=== PATIENT | male | born 1940 | race Caucasian/White ===

== ENCOUNTER 2021-01-05 05:50 | Observation (INO) ==
[2020-12-30 11:00] LABS: Basophils # 0.1 10*3/uL (0.0-0.2); Basophils % 0.7 % (0.0-0.8); Eosinophils # 0.2 10*3/uL (0.0-0.87); Eosinophils % 2.4 % (0.00-10.9); Hemoglobin 12.3 GM/DL (14.0-18.0); Immature Granulocytes % 0.8 %; Immature Granulocytes Absolute 0.06 #; Lymphocytes # 2.2 10*3/uL (1.4-4.0); Lymphocytes % 30.6 % (21.2-54.2); Mean Corpuscular HGB Conc 31.5 GM/DL (32-36); Mean Corpuscular Volume 96.5 FL (87-102); Mean Platelet Volume 11.6 FL (9.6-12.0); Monocytes % 9.8 % (1.7-12.7); Neutrophils % 55.7 % (38.7-73.9); Platelet Count 152 T/CUMM (130-400); Red Blood Count 4.04 MC/CUMM (3.8-5.5); Red Cell Distribution Width 14.8 % (9.3-17.3); White Blood Count 7.1 T/CUMM (4-12)
[2020-12-30 11:12] LABS: INR 1.3; PT Patient Result 13.7 SECS (9.8-11.9); Partial Thromboplastin Time 34.2 SECS (23.9-33.8)
[2020-12-30 11:33] LABS: Calcium 8.7 MG/DL (8.5-10.1); Osmolality,Calculated 294.7 MOS/KG (273-304); Potassium 4.5 MMOL/L (3.5-5.1)
[2021-01-05] MEDS ORDERED: ceFAZolin 1,000 MG in SYRINGE 1 EACH IV ONE (06:00)
[2021-01-05] MEDS ORDERED: cefTRIAXone 1,000 MG in SYRINGE 1 EACH IV ONE (06:00)
[2021-01-05] MEDS ORDERED: DIAZEPAM 5 MG TABLET PO ONE (06:39)
[2021-01-05] MEDS ORDERED: FAMOTIDINE 20 MG TABLET PO ONE (06:39)
[2021-01-05] MEDS ORDERED: MIDAZOLAM 2 MG/2 ML VIAL ONE (06:44)
[2021-01-05] MEDS ORDERED: fentaNYL 100 MCG/2 ML VIAL ONE (06:44)
[2021-01-05] MEDS ORDERED: ROCURONIUM 50 MG/5 ML VIAL IV ONE (06:48)
[2021-01-05] MEDS ORDERED: LIDOCAINE 2% 5 ML VIAL ONE (06:48)
[2021-01-05] MEDS ORDERED: propofoL 200 MG/20 ML VIAL IV ONE (06:48)
[2021-01-05] MEDS ORDERED: SUCCINYLCHOLINE 200 MG/10 ML VIAL ONE (06:49)
[2021-01-05] MEDS ORDERED: LACTATED RINGERS 1,000 ML IV SCH (07:00)
[2021-01-05] MEDS ORDERED: SEVOFLURANE 1 UNIT/15 MINUTE INH ONE ×10 (08:03→10:59)
[2021-01-05] MEDS ORDERED: PHENYLEPHRINE 1 MG/10 ML SYRINGE IV ONE (08:03)
[2021-01-05] MEDS ORDERED: ACETAMINOPHEN INJ 1,000 MG/100 ML VIAL IV ONE (08:26)
[2021-01-05] MEDS ORDERED: ePHEDrine 50 MG/ML VIAL ONE (09:08)
[2021-01-05] MEDS ORDERED: MAGNESIUM HYDROXIDE SUSP 30 ML UDCUP PO PRN (10:32)
[2021-01-05] MEDS ORDERED: ONDANSETRON 4 MG/2 ML VIAL IV PRN (10:32)
[2021-01-05] MEDS ORDERED: HYDROmorphone 2 MG/1 ML VIAL IV PRN (10:32)
[2021-01-05] MEDS ORDERED: PROMETHAZINE 25 MG/1 ML VIAL IM PRN (10:32)
[2021-01-05] MEDS ORDERED: oxyCODONE/ACETAMINOPHEN 5-325 MG TABLET PO PRN (10:35)
[2021-01-05 12:56] LABS: Basophils # 0.1 10*3/uL (0.0-0.2); Basophils % 0.8 % (0.0-0.8); Eosinophils # 0.1 10*3/uL (0.0-0.87); Eosinophils % 1.1 % (0.00-10.9); Hematocrit 36.5 VOL% (42.0-52.0); Immature Granulocytes % 0.8 %; Immature Granulocytes Absolute 0.05 #; Lymphocytes # 1.1 10*3/uL (1.4-4.0); Lymphocytes % 17.1 % (21.2-54.2); Mean Corpuscular HGB Conc 30.1 GM/DL (32-36); Mean Corpuscular Volume 98.4 FL (87-102); Mean Platelet Volume 10.4 FL (9.6-12.0); Monocytes % 7.1 % (1.7-12.7); Neutrophils % 73.1 % (38.7-73.9); Platelet Count 139 T/CUMM (130-400); Red Blood Count 3.71 MC/CUMM (3.8-5.5); Red Cell Distribution Width 14.8 % (9.3-17.3); White Blood Count 6.6 T/CUMM (4-12)
[2021-01-05] MEDS: cefTRIAXone 1,000 MG in SODIUM CHLORIDE 0.9% 100 ML IV SCH (13:03)
[2021-01-05] MEDS: ACETAMINOPHEN 325 MG TABLET PO SCH ×3 (13:03→23:04)
[2021-01-05 13:08] LABS: Calcium 8.6 MG/DL (8.5-10.1); Potassium 4.2 MMOL/L (3.5-5.1)
[2021-01-05] MEDS: SODIUM CHLORIDE 0.9% 1,000 ML IV SCH (18:19)
[2021-01-05] MEDS: ATORVASTATIN 20 MG TABLET PO SCH (21:20)
[2021-01-05] MEDS: MUPIROCIN 2% OINT 22 GM TUBE TOP SCH (21:21)
[2021-01-06] MEDS: ACETAMINOPHEN 325 MG TABLET PO SCH ×4 (05:23→22:29)
[2021-01-06 05:33] LABS: Basophils # 0.1 10*3/uL (0.0-0.2); Basophils % 0.9 % (0.0-0.8); Eosinophils # 0.2 10*3/uL (0.0-0.87); Eosinophils % 2.6 % (0.00-10.9); Hematocrit 36.1 VOL% (42.0-52.0); Immature Granulocytes % 0.7 %; Immature Granulocytes Absolute 0.04 #; Lymphocytes # 1.3 10*3/uL (1.4-4.0); Lymphocytes % 22.1 % (21.2-54.2); Mean Corpuscular HGB Conc 30.5 GM/DL (32-36); Mean Corpuscular Volume 98.9 FL (87-102); Mean Platelet Volume 10.7 FL (9.6-12.0); Monocytes % 10.5 % (1.7-12.7); Neutrophils % 63.2 % (38.7-73.9); Platelet Count 127 T/CUMM (130-400); Red Blood Count 3.65 MC/CUMM (3.8-5.5); Red Cell Distribution Width 14.7 % (9.3-17.3); White Blood Count 5.8 T/CUMM (4-12)
[2021-01-06 05:51] LABS: Calcium 8.2 MG/DL (8.5-10.1); Osmolality,Calculated 293.7 MOS/KG (273-304); Potassium 4.2 MMOL/L (3.5-5.1)
[2021-01-06 05:54] LABS: Burr Cells 1+; Hypochromasia Slight; Ovalocytes 2+; Platelet Estimate Normal
[2021-01-06] MEDS: TAMSULOSIN 0.4 MG CAPSULE PO SCH (08:50)
[2021-01-06] MEDS: PANTOPRAZOLE 40 MG TABLET PO SCH (08:50)
[2021-01-06] MEDS: METOPROLOL SUCCINATE XL 50 MG TABLET PO SCH (08:51)
[2021-01-06] MEDS: LEVOTHYROXINE 50 MCG TABLET PO SCH (08:51)
[2021-01-06] MEDS: ISOSORBIDE MONONITRATE 30 MG TABLET PO SCH (08:51)
[2021-01-06] MEDS: POTASSIUM CHLORIDE 20 MEQ TABLET PO SCH (08:52)
[2021-01-06] MEDS: SPIRONOLACTONE 50 MG TABLET PO SCH (08:52)
[2021-01-06] MEDS: ASPIRIN EC 81 MG TABLET PO SCH (08:52)
[2021-01-06] MEDS: MUPIROCIN 2% OINT 22 GM TUBE TOP SCH ×2 (13:10→22:38)
[2021-01-06] MEDS: cefTRIAXone 1,000 MG in SODIUM CHLORIDE 0.9% 100 ML IV SCH (13:10)
[2021-01-06] MEDS: ATORVASTATIN 20 MG TABLET PO SCH (22:29)
[2021-01-06] MEDS: SODIUM CHLORIDE 0.9% 1,000 ML IV SCH (22:31)
[2021-01-07] MEDS: ACETAMINOPHEN 325 MG TABLET PO SCH (05:10)
[2021-01-07 05:58] LABS: Basophils % 0.6 % (0.0-0.8); Eosinophils # 0.1 10*3/uL (0.0-0.87); Eosinophils % 2.6 % (0.00-10.9); Hematocrit 34.6 VOL% (42.0-52.0); Hemoglobin 10.8 GM/DL (14.0-18.0); Immature Granulocytes % 0.6 %; Immature Granulocytes Absolute 0.03 #; Lymphocytes # 1.2 10*3/uL (1.4-4.0); Lymphocytes % 23.2 % (21.2-54.2); Mean Corpuscular HGB Conc 31.2 GM/DL (32-36); Mean Corpuscular Volume 96.1 FL (87-102); Mean Platelet Volume 10.9 FL (9.6-12.0); Monocytes % 10.6 % (1.7-12.7); Neutrophils % 62.4 % (38.7-73.9); Platelet Count 118 T/CUMM (130-400); Red Cell Distribution Width 14.8 % (9.3-17.3); White Blood Count 5.3 T/CUMM (4-12)
[2021-01-07 06:11] LABS: Calcium 8.3 MG/DL (8.5-10.1); Potassium 4.3 MMOL/L (3.5-5.1)
[2021-01-07 07:53] VITALS: BP 119/62
[2021-01-07] MEDS: PANTOPRAZOLE 40 MG TABLET PO SCH (08:43)
[2021-01-07] MEDS: ISOSORBIDE MONONITRATE 30 MG TABLET PO SCH (08:43)
[2021-01-07] MEDS: ASPIRIN EC 81 MG TABLET PO SCH (08:43)
[2021-01-07] MEDS: TAMSULOSIN 0.4 MG CAPSULE PO SCH (08:43)
[2021-01-07] MEDS: POTASSIUM CHLORIDE 20 MEQ TABLET PO SCH (08:43)
[2021-01-07] MEDS: MUPIROCIN 2% OINT 22 GM TUBE TOP SCH (08:43)
[2021-01-07] MEDS: METOPROLOL SUCCINATE XL 50 MG TABLET PO SCH (08:43)
[2021-01-07] MEDS: LEVOTHYROXINE 50 MCG TABLET PO SCH (08:43)
[2021-01-07] MEDS: SPIRONOLACTONE 50 MG TABLET PO SCH (08:43)
[2021-01-13 14:01] LABS: Stone Source SEE COMMENTS
== END 2021-01-07 10:25 | disposition home or self-care (01) ==
LOC: N.4E 05:50 → N.OR 05:50 → N.SDSINP 05:50 → EDSDCBED 11:28 → N.4E 11:28 → N.OR 01-07 10:25 → UNDODEPSDC 01-07 12:31
PROVIDERS: ADMIT Surgery; ATTEND Surgery

== ENCOUNTER 2022-02-14 22:16 | Inpatient (IN) ==
[2022-02-14] MEDS ORDERED: SODIUM CHLORIDE 0.9% 1,000 ML IV STA (23:05)
[2022-02-14 23:39] LABS: Alanine Aminotransferase 12 U/L (16-61); Albumin 2.8 G/DL (3.4-5.0); Alkaline Phosphatase 62 U/L (45-117); Aspartate Amino Transferase 14 U/L (0-37); Blood Urea Nitrogen 53 MG/DL (7-18); Calcium 8.2 MG/DL (8.5-10.1); Carbon Dioxide 14 MMOL/L (21-32); Chloride 109 MMOL/L (98-107); Glucose 115 MG/DL (74-106); Potassium 4.1 MMOL/L (3.5-5.1); Sodium 136 MMOL/L (136-145); Total Protein 6.4 G/DL (6.4-8.2)
[2022-02-14 23:40] LABS: Basophils % 0.1 % (0.0-0.8); Immature Granulocytes % 2.2 %; Immature Granulocytes Absolute 0.31 #; Lymphocytes # 0.6 10*3/uL (1.4-4.0); Mean Corpuscular HGB Conc 30.3 GM/DL (32-36); Mean Corpuscular Volume 98.2 FL (87-102); Mean Platelet Volume 11.8 FL (9.6-12.0); Monocytes # 0.9 10*3/uL (0.11-0.8); Neutrophils % 87.7 % (38.7-73.9); Platelet Count 133 T/CUMM (130-400); Red Blood Count 3.36 MC/CUMM (3.8-5.5); Red Cell Distribution Width 15.9 % (9.3-17.3); White Blood Count 14.2 T/CUMM (4-12)
[2022-02-14] MEDS ORDERED: SODIUM CHLORIDE 0.9% 2,000 ML IV STA (23:45)
[2022-02-14] MEDS ORDERED: PIPERACILLIN/TAZOBACTAM 3,375 MG in SODIUM CHLORIDE 0.9% 100 ML IV STA (23:49)
[2022-02-15 00:33] LABS: Lymphocytes 3 % (20-55); Platelet Estimate Adequate; Total Cells Counted 100
[2022-02-15 00:37] LABS: Hyaline Casts,Urine 38 /LPF (0-3); Mucus,Urine Moderate /LPF (Occasional); RBC,Urine 69 /HPF (0-4)
[2022-02-15 00:38] LABS: Bilirubin,Urine Small mg/dL (Negative); Blood, Urine Large mg/dL (Negative); Glucose,Urine (UA) Negative (Negative); Ketones,Urine Trace mg/dL (Negative); Nitrite,Urine Negative (Negative); Protein,Urine >=300 mg/dL (Negative); Urine Appearance Turbid (Clear); Urine Color Yellow (Yellow); Urine Specific Gravity >= 1.030 (1.001-1.035); Urine Urobilinogen 0.2 eU/dL (<2.0); Urine pH 5.5 (4.5-8.0)
[2022-02-15] MEDS ORDERED: NOREPINEPHRINE 8 MG in SODIUM CHLORIDE 0.9% 242 ML IV PRN (01:39)
[2022-02-15] MEDS ORDERED: ONDANSETRON 4 MG/2 ML VIAL IV PRN (01:39)
[2022-02-15] MEDS ORDERED: ALBUTEROL 2.5 MG/3 ML NEB RESP TX PRN (01:39)
[2022-02-15] MEDS ORDERED: LACTATED RINGERS 1,000 ML IV SCH (02:00)
[2022-02-15] MEDS ORDERED: NOREPINEPHRINE 4 MG/4 ML VIAL IV ONE ×2 (02:18→02:44)
[2022-02-15] MEDS ORDERED: LEVOFLOXACIN INJ 750 MG/150 ML PREMIX IV ONE (03:00)
[2022-02-15 05:23] LABS: Basophils % 0.1 % (0.0-0.8); Hematocrit 32.1 VOL% (42.0-52.0); Hemoglobin 9.5 GM/DL (14.0-18.0); Immature Granulocytes Absolute 0.21 #; Lymphocytes # 0.5 10*3/uL (1.4-4.0); Lymphocytes % 4.3 % (21.2-54.2); Mean Corpuscular HGB Conc 29.6 GM/DL (32-36); Mean Platelet Volume 11.5 FL (9.6-12.0); Monocytes # 0.5 10*3/uL (0.11-0.8); Monocytes % 4.9 % (1.7-12.7); Neutrophils % 88.7 % (38.7-73.9); Platelet Count 108 T/CUMM (130-400); Red Blood Count 3.21 MC/CUMM (3.8-5.5); Red Cell Distribution Width 15.7 % (9.3-17.3); White Blood Count 10.7 T/CUMM (4-12)
[2022-02-15 05:31] LABS: INR 1.9; PT Patient Result 20.1 SECS (10.5-12.0)
[2022-02-15 05:41] LABS: Albumin 2.4 G/DL (3.4-5.0); Bilirubin,Total 1.2 MG/DL (0.20-1.00); Calcium 7.6 MG/DL (8.5-10.1); Osmolality,Calculated 290.7 MOS/KG (273-304); Potassium 3.9 MMOL/L (3.5-5.1); Total Protein 5.7 G/DL (6.4-8.2)
[2022-02-15 05:52] LABS: Lymphocytes 5 % (20-55); Total Cells Counted 100
[2022-02-15 05:53] LABS: Acanthocytes Few; Burr Cells Few
[2022-02-15] MEDS ORDERED: MAGNESIUM SULF RIDER 4 GM/100 ML PREMIX IV PRN (06:20)
[2022-02-15] MEDS: MAGNESIUM SULF RIDER 2 GM/50 ML PREMIX IV PRN ×2 (06:40→08:47)
[2022-02-15] MEDS ORDERED: SODIUM BICARBONATE 50 MEQ/50 ML VIAL IV ONE (07:19)
[2022-02-15] MEDS: MEROPENEM 500 MG in SODIUM CHLORIDE 0.9% 100 ML IV SCH (08:17)
[2022-02-15] MEDS: SODIUM BICARB INJ 150 MEQ in DEXTROSE 5% 1,000 ML IV SCH ×2 (08:17→21:20)
[2022-02-15] MEDS: LEVOTHYROXINE 50 MCG TABLET PO SCH (08:33)
[2022-02-15] MEDS ORDERED: MORPHINE 2 MG/1 ML SYRINGE IV PRN (10:16)
[2022-02-15] MEDS ORDERED: ZINC OXIDE PASTE 113 GM TUBE TOP PRN (14:44)
[2022-02-15] MEDS ORDERED: propofoL 200 MG/20 ML VIAL IV ONE (16:22)
[2022-02-15] MEDS ORDERED: SEVOFLURANE 1 UNIT/15 MINUTE INH ONE (16:22)
[2022-02-15] MEDS ORDERED: DEXAMETHASONE 4 MG/1 ML VIAL ONE (16:22)
[2022-02-15] MEDS ORDERED: ONDANSETRON 4 MG/2 ML VIAL ONE (16:22)
[2022-02-15] MEDS ORDERED: LIDOCAINE 2% 5 ML VIAL ONE (16:22)
[2022-02-15] MEDS ORDERED: ETOMIDATE 40 MG/20 ML VIAL IV ONE (16:22)
[2022-02-15] MEDS ORDERED: SODIUM CHLORIDE 0.9% 250 ML IV ONE (16:50)
[2022-02-15 19:57] LABS: Calcium 7.7 MG/DL (8.5-10.1); Osmolality,Calculated 291.7 MOS/KG (273-304); Potassium 3.8 MMOL/L (3.5-5.1)
[2022-02-15] MEDS: PANTOPRAZOLE 40 MG VIAL IV SCH (21:14)
[2022-02-16 04:33] LABS: Basophils % 0.1 % (0.0-0.8); Hematocrit 30.2 VOL% (42.0-52.0); Hemoglobin 9.2 GM/DL (14.0-18.0); Immature Granulocytes % 1.8 %; Immature Granulocytes Absolute 0.12 #; Lymphocytes # 0.3 10*3/uL (1.4-4.0); Lymphocytes % 4.3 % (21.2-54.2); Mean Corpuscular HGB Conc 30.5 GM/DL (32-36); Mean Corpuscular Volume 95.9 FL (87-102); Mean Platelet Volume 11.5 FL (9.6-12.0); Monocytes # 0.5 10*3/uL (0.11-0.8); Monocytes % 7.2 % (1.7-12.7); Neutrophils % 86.6 % (38.7-73.9); Platelet Count 114 T/CUMM (130-400); Red Blood Count 3.15 MC/CUMM (3.8-5.5); Red Cell Distribution Width 15.8 % (9.3-17.3); White Blood Count 6.7 T/CUMM (4-12)
[2022-02-16 04:58] LABS: Albumin 2.2 G/DL (3.4-5.0); Bilirubin,Total 0.9 MG/DL (0.20-1.00); Calcium 7.6 MG/DL (8.5-10.1); Osmolality,Calculated 293.5 MOS/KG (273-304); Potassium 3.8 MMOL/L (3.5-5.1); Total Protein 5.4 G/DL (6.4-8.2)
[2022-02-16 05:03] LABS: Lymphocytes 7 % (20-55); Total Cells Counted 100
[2022-02-16] MEDS: PANTOPRAZOLE 40 MG VIAL IV SCH ×2 (09:50→21:21)
[2022-02-16] MEDS: LEVOTHYROXINE 50 MCG TABLET PO SCH (09:50)
[2022-02-16] MEDS: SODIUM BICARB INJ 150 MEQ in DEXTROSE 5% 1,000 ML IV SCH (10:37)
[2022-02-16] MEDS: ERTAPENEM 500 MG in SODIUM CHLORIDE 0.9% 100 ML IV SCH (11:10)
[2022-02-16] MEDS: POLYETHYLENE GLYCOL POWDER 17 GM PACK PO SCH ×2 (12:00→21:21)
[2022-02-16] MEDS: MEROPENEM 500 MG in SODIUM CHLORIDE 0.9% 100 ML IV SCH (12:29)
[2022-02-17] MEDS: SODIUM BICARB INJ 150 MEQ in DEXTROSE 5% 1,000 ML IV SCH ×3 (00:08→18:33)
[2022-02-17 03:38] LABS: Hematocrit 28.8 VOL% (42.0-52.0); Hemoglobin 9.1 GM/DL (14.0-18.0); Immature Granulocytes % 1.4 %; Immature Granulocytes Absolute 0.07 #; Lymphocytes # 0.4 10*3/uL (1.4-4.0); Lymphocytes % 7.8 % (21.2-54.2); Mean Corpuscular HGB Conc 31.6 GM/DL (32-36); Mean Corpuscular Volume 93.2 FL (87-102); Mean Platelet Volume 11.6 FL (9.6-12.0); Monocytes # 0.4 10*3/uL (0.11-0.8); Monocytes % 8.6 % (1.7-12.7); Neutrophils % 82.2 % (38.7-73.9); Platelet Count 114 T/CUMM (130-400); Red Blood Count 3.09 MC/CUMM (3.8-5.5); Red Cell Distribution Width 15.4 % (9.3-17.3); White Blood Count 4.9 T/CUMM (4-12)
[2022-02-17 04:08] LABS: Bilirubin,Total 0.5 MG/DL (0.20-1.00); Calcium 7.6 MG/DL (8.5-10.1); Potassium 2.9 MMOL/L (3.5-5.1)
[2022-02-17] MEDS ORDERED: POTASSIUM CHLORIDE 20 MEQ TABLET PO ONE (04:31)
[2022-02-17] MEDS ORDERED: LEVOFLOXACIN INJ 500 MG/100 ML PREMIX IV SCH (09:00)
[2022-02-17] MEDS: PANTOPRAZOLE 40 MG VIAL IV SCH ×2 (09:09→21:50)
[2022-02-17] MEDS: LEVOTHYROXINE 50 MCG TABLET PO SCH (09:10)
[2022-02-17] MEDS: ERTAPENEM 500 MG in SODIUM CHLORIDE 0.9% 100 ML IV SCH (11:00)
[2022-02-17] MEDS: POLYETHYLENE GLYCOL POWDER 17 GM PACK PO SCH ×2 (11:47→21:01)
[2022-02-17] MEDS: RIVAROXABAN 20 MG TABLET PO SCH (18:58)
[2022-02-17] MEDS: MELATONIN 3 MG TABLET PO PRN (22:23)
[2022-02-18] MEDS: SODIUM BICARB INJ 150 MEQ in DEXTROSE 5% 1,000 ML IV SCH (04:10)
[2022-02-18 05:35] LABS: Basophils % 0.2 % (0.0-0.8); Eosinophils % 0.8 % (0.00-10.9); Hematocrit 30.5 VOL% (42.0-52.0); Hemoglobin 9.4 GM/DL (14.0-18.0); Immature Granulocytes % 0.8 %; Immature Granulocytes Absolute 0.04 #; Lymphocytes # 0.6 10*3/uL (1.4-4.0); Mean Corpuscular HGB Conc 30.8 GM/DL (32-36); Mean Corpuscular Volume 94.7 FL (87-102); Mean Platelet Volume 10.9 FL (9.6-12.0); Monocytes # 0.6 10*3/uL (0.11-0.8); Monocytes % 11.8 % (1.7-12.7); NRBC # 0.02 10*3/uL; Neutrophils % 74.4 % (38.7-73.9); Platelet Count 135 T/CUMM (130-400); Red Blood Count 3.22 MC/CUMM (3.8-5.5); Red Cell Distribution Width 15.5 % (9.3-17.3); White Blood Count 5.1 T/CUMM (4-12)
[2022-02-18 05:53] LABS: Calcium 7.3 MG/DL (8.5-10.1); Potassium 3.2 MMOL/L (3.5-5.1)
[2022-02-18] MEDS ORDERED: FUROSEMIDE 40 MG/4 ML VIAL ONE (09:33)
[2022-02-18] MEDS ORDERED: FUROSEMIDE 40 MG/4 ML VIAL IV ONE (09:39)
[2022-02-18] MEDS: ALBUTEROL/IPRATROPIUM 3 ML NEB RESP TX SCH ×2 (09:44→18:55)
[2022-02-18] MEDS ORDERED: METOPROLOL TARTRATE 5 MG/5 ML VIAL IV ONE (09:48)
[2022-02-18] MEDS ORDERED: methylPREDNISolone SOD SUC 40 MG/1 ML VIAL IV ONE (09:53)
[2022-02-18] MEDS ORDERED: DILTIAZEM 25 MG/5 ML VIAL IV ONE ×2 (09:56→10:00)
[2022-02-18] MEDS: LEVOTHYROXINE 50 MCG TABLET PO SCH (10:25)
[2022-02-18] MEDS: POLYETHYLENE GLYCOL POWDER 17 GM PACK PO SCH ×2 (10:25→21:27)
[2022-02-18] MEDS: ASPIRIN EC 81 MG TABLET PO SCH (10:25)
[2022-02-18] MEDS: PANTOPRAZOLE 40 MG TABLET PO SCH ×2 (10:25→21:25)
[2022-02-18] MEDS: ERTAPENEM 500 MG in SODIUM CHLORIDE 0.9% 100 ML IV SCH (11:12)
[2022-02-18] MEDS: RIVAROXABAN 20 MG TABLET PO SCH (16:55)
[2022-02-18] MEDS: methylPREDNISolone SOD SUC 40 MG/1 ML VIAL IV SCH (16:55)
[2022-02-18] MEDS: MELATONIN 3 MG TABLET PO PRN (21:25)
[2022-02-19] MEDS: methylPREDNISolone SOD SUC 40 MG/1 ML VIAL IV SCH ×3 (01:57→20:36)
[2022-02-19] MEDS: ALBUTEROL/IPRATROPIUM 3 ML NEB RESP TX SCH ×3 (02:15→20:00)
[2022-02-19 05:03] LABS: Basophils % 0.2 % (0.0-0.8); Hematocrit 29.7 VOL% (42.0-52.0); Hemoglobin 9.3 GM/DL (14.0-18.0); Immature Granulocytes % 1.4 %; Immature Granulocytes Absolute 0.06 #; Lymphocytes # 0.3 10*3/uL (1.4-4.0); Lymphocytes % 6.7 % (21.2-54.2); Mean Corpuscular HGB Conc 31.3 GM/DL (32-36); Mean Corpuscular Volume 94.3 FL (87-102); Mean Platelet Volume 11.2 FL (9.6-12.0); Monocytes # 0.2 10*3/uL (0.11-0.8); Monocytes % 3.7 % (1.7-12.7); Platelet Count 135 T/CUMM (130-400); Red Blood Count 3.15 MC/CUMM (3.8-5.5); Red Cell Distribution Width 15.5 % (9.3-17.3); White Blood Count 4.4 T/CUMM (4-12)
[2022-02-19 05:18] LABS: Calcium 7.8 MG/DL (8.5-10.1); Potassium 2.8 MMOL/L (3.5-5.1)
[2022-02-19 05:27] LABS: Platelet Estimate Normal
[2022-02-19 05:28] LABS: Acanthocytes Few; Poikilocytosis Slight
[2022-02-19] MEDS: POTASSIUM CHLORIDE 20 MEQ TABLET PO PRN ×4 (06:43→13:03)
[2022-02-19] MEDS: MAGNESIUM SULF RIDER 2 GM/50 ML PREMIX IV PRN (06:43)
[2022-02-19] MEDS: POLYETHYLENE GLYCOL POWDER 17 GM PACK PO SCH ×2 (08:01→20:36)
[2022-02-19] MEDS: PANTOPRAZOLE 40 MG TABLET PO SCH ×2 (08:01→20:36)
[2022-02-19] MEDS: METOPROLOL SUCCINATE XL 50 MG TABLET PO SCH (08:01)
[2022-02-19] MEDS: ASPIRIN EC 81 MG TABLET PO SCH (08:01)
[2022-02-19] MEDS: LEVOTHYROXINE 50 MCG TABLET PO SCH (08:04)
[2022-02-19] MEDS ORDERED: NON-FORMULARY MEDICATION (Omeprazole 20 mg Capsule,Delayed Release(Dr/Ec)) PO SCH (09:00)
[2022-02-19] MEDS: POTASSIUM CHLORIDE 20 MEQ TABLET PO SCH (09:33)
[2022-02-19] MEDS: SPIRONOLACTONE 25 MG TABLET PO SCH ×2 (09:33→20:36)
[2022-02-19] MEDS: ISOSORBIDE MONONITRATE 60 MG TABLET PO SCH (09:33)
[2022-02-19] MEDS: ERTAPENEM 500 MG in SODIUM CHLORIDE 0.9% 100 ML IV SCH (09:36)
[2022-02-19] MEDS ORDERED: POTASSIUM CHLORIDE RIDER 10 MEQ/100 ML PREMIX IV SCH (12:00)
[2022-02-19] MEDS: RIVAROXABAN 20 MG TABLET PO SCH (18:00)
[2022-02-19] MEDS: ATORVASTATIN 20 MG TABLET PO SCH (20:36)
[2022-02-20] MEDS: ALBUTEROL/IPRATROPIUM 3 ML NEB RESP TX SCH ×3 (03:30→17:20)
[2022-02-20 05:19] LABS: Basophils % 0.1 % (0.0-0.8); Eosinophils % 0.1 % (0.00-10.9); Hematocrit 29.5 VOL% (42.0-52.0); Hemoglobin 9.2 GM/DL (14.0-18.0); Immature Granulocytes % 2.4 %; Immature Granulocytes Absolute 0.17 #; Lymphocytes # 0.7 10*3/uL (1.4-4.0); Lymphocytes % 9.6 % (21.2-54.2); Mean Corpuscular HGB Conc 31.2 GM/DL (32-36); Mean Corpuscular Volume 96.4 FL (87-102); Mean Platelet Volume 12.6 FL (9.6-12.0); Monocytes # 0.3 10*3/uL (0.11-0.8); Monocytes % 4.2 % (1.7-12.7); Neutrophils % 83.6 % (38.7-73.9); Platelet Count 117 T/CUMM (130-400); Red Blood Count 3.06 MC/CUMM (3.8-5.5); Red Cell Distribution Width 15.5 % (9.3-17.3); White Blood Count 7.2 T/CUMM (4-12)
[2022-02-20 05:58] LABS: Calcium 8.2 MG/DL (8.5-10.1); Osmolality,Calculated 296.1 MOS/KG (273-304); Potassium 4.3 MMOL/L (3.5-5.1)
[2022-02-20] MEDS: ASPIRIN EC 81 MG TABLET PO SCH (09:52)
[2022-02-20] MEDS: METOPROLOL SUCCINATE XL 50 MG TABLET PO SCH (09:52)
[2022-02-20] MEDS: POTASSIUM CHLORIDE 20 MEQ TABLET PO SCH (09:52)
[2022-02-20] MEDS: PANTOPRAZOLE 40 MG TABLET PO SCH ×2 (09:52→20:45)
[2022-02-20] MEDS: SPIRONOLACTONE 25 MG TABLET PO SCH ×2 (09:52→20:45)
[2022-02-20] MEDS: ISOSORBIDE MONONITRATE 60 MG TABLET PO SCH (09:53)
[2022-02-20] MEDS: LEVOTHYROXINE 50 MCG TABLET PO SCH (09:53)
[2022-02-20] MEDS: methylPREDNISolone SOD SUC 40 MG/1 ML VIAL IV SCH ×2 (09:56→20:45)
[2022-02-20] MEDS: POLYETHYLENE GLYCOL POWDER 17 GM PACK PO SCH ×2 (09:58→20:44)
[2022-02-20] MEDS: ERTAPENEM 500 MG in SODIUM CHLORIDE 0.9% 100 ML IV SCH (12:30)
[2022-02-20] MEDS: MELATONIN 3 MG TABLET PO PRN (20:45)
[2022-02-20] MEDS: ATORVASTATIN 20 MG TABLET PO SCH (20:45)
[2022-02-21] MEDS: ALBUTEROL/IPRATROPIUM 3 ML NEB RESP TX SCH ×4 (03:25→23:33)
[2022-02-21 06:06] LABS: Basophils % 0.3 % (0.0-0.8); Hematocrit 31.2 VOL% (42.0-52.0); Hemoglobin 9.4 GM/DL (14.0-18.0); Immature Granulocytes % 5.4 %; Immature Granulocytes Absolute 0.34 #; Lymphocytes # 0.6 10*3/uL (1.4-4.0); Lymphocytes % 9.5 % (21.2-54.2); Mean Corpuscular HGB Conc 30.1 GM/DL (32-36); Mean Corpuscular Volume 95.4 FL (87-102); Mean Platelet Volume 10.6 FL (9.6-12.0); Monocytes # 0.2 10*3/uL (0.11-0.8); Monocytes % 3.5 % (1.7-12.7); Neutrophils % 81.3 % (38.7-73.9); Platelet Count 172 T/CUMM (130-400); Red Blood Count 3.27 MC/CUMM (3.8-5.5); Red Cell Distribution Width 15.1 % (9.3-17.3); White Blood Count 6.3 T/CUMM (4-12)
[2022-02-21 06:33] LABS: Calcium 8.5 MG/DL (8.5-10.1); Potassium 4.5 MMOL/L (3.5-5.1)
[2022-02-21 06:34] LABS: Lymphocytes 11 % (20-55); Platelet Estimate Adequate; Total Cells Counted 100
[2022-02-21 06:35] LABS: Ovalocytes Slight
[2022-02-21] MEDS: POLYETHYLENE GLYCOL POWDER 17 GM PACK PO SCH (09:45)
[2022-02-21] MEDS: ISOSORBIDE MONONITRATE 30 MG TABLET PO SCH (09:45)
[2022-02-21] MEDS: SPIRONOLACTONE 25 MG TABLET PO SCH ×2 (09:45→21:52)
[2022-02-21] MEDS: POTASSIUM CHLORIDE 20 MEQ TABLET PO SCH (09:46)
[2022-02-21] MEDS: PANTOPRAZOLE 40 MG TABLET PO SCH ×2 (09:46→21:52)
[2022-02-21] MEDS: LEVOTHYROXINE 50 MCG TABLET PO SCH (09:47)
[2022-02-21] MEDS: METOPROLOL SUCCINATE XL 50 MG TABLET PO SCH (09:47)
[2022-02-21] MEDS: methylPREDNISolone SOD SUC 40 MG/1 ML VIAL IV SCH ×2 (09:50→21:53)
[2022-02-21] MEDS: ASPIRIN EC 81 MG TABLET PO SCH (10:00)
[2022-02-21] MEDS: ERTAPENEM 500 MG in SODIUM CHLORIDE 0.9% 100 ML IV SCH (10:59)
[2022-02-21] MEDS: ATORVASTATIN 20 MG TABLET PO SCH (21:51)
[2022-02-21] MEDS: MELATONIN 3 MG TABLET PO PRN (21:51)
[2022-02-22] MEDS: POLYETHYLENE GLYCOL POWDER 17 GM PACK PO SCH ×3 (02:40→21:01)
[2022-02-22 05:58] LABS: Basophils % 0.2 % (0.0-0.8); Hematocrit 32.4 VOL% (42.0-52.0); Hemoglobin 9.8 GM/DL (14.0-18.0); Immature Granulocytes % 7.1 %; Immature Granulocytes Absolute 0.43 #; Lymphocytes # 0.7 10*3/uL (1.4-4.0); Lymphocytes % 10.9 % (21.2-54.2); Mean Corpuscular HGB Conc 30.2 GM/DL (32-36); Mean Corpuscular Volume 96.1 FL (87-102); Mean Platelet Volume 10.7 FL (9.6-12.0); Monocytes # 0.4 10*3/uL (0.11-0.8); Monocytes % 5.8 % (1.7-12.7); Platelet Count 185 T/CUMM (130-400); Red Blood Count 3.37 MC/CUMM (3.8-5.5); Red Cell Distribution Width 14.9 % (9.3-17.3); White Blood Count 6.1 T/CUMM (4-12)
[2022-02-22 06:04] LABS: Calcium 8.4 MG/DL (8.5-10.1); Osmolality,Calculated 299.1 MOS/KG (273-304); Potassium 4.4 MMOL/L (3.5-5.1)
[2022-02-22 06:26] LABS: Lymphocytes 12 % (20-55); Platelet Estimate Adequate; Total Cells Counted 100
[2022-02-22 06:27] LABS: Ovalocytes Slight
[2022-02-22] MEDS: ALBUTEROL/IPRATROPIUM 3 ML NEB RESP TX SCH ×2 (07:31→15:05)
[2022-02-22] MEDS: SPIRONOLACTONE 25 MG TABLET PO SCH ×2 (11:08→21:02)
[2022-02-22] MEDS: ASPIRIN EC 81 MG TABLET PO SCH (11:08)
[2022-02-22] MEDS: SIMETHICONE CHEW 125 MG TABLET PO SCH ×4 (11:09→21:02)
[2022-02-22] MEDS: POTASSIUM CHLORIDE 20 MEQ TABLET PO SCH (11:09)
[2022-02-22] MEDS: ISOSORBIDE MONONITRATE 30 MG TABLET PO SCH (11:09)
[2022-02-22] MEDS: PANTOPRAZOLE 40 MG TABLET PO SCH ×2 (11:17→21:02)
[2022-02-22] MEDS: methylPREDNISolone SOD SUC 40 MG/1 ML VIAL IV SCH ×2 (11:18→21:02)
[2022-02-22] MEDS: ERTAPENEM 500 MG in SODIUM CHLORIDE 0.9% 100 ML IV SCH (11:18)
[2022-02-22] MEDS: LEVOTHYROXINE 50 MCG TABLET PO SCH (11:18)
[2022-02-22] MEDS: METOPROLOL SUCCINATE XL 50 MG TABLET PO SCH (11:18)
[2022-02-22] MEDS ORDERED: NEOMYCIN/POLYMYXIN IRRIG SOLN 1 ML AMP BLADDERIRR ONE (16:40)
[2022-02-22] MEDS ORDERED: propofoL 200 MG/20 ML VIAL IV ONE (16:56)
[2022-02-22] MEDS ORDERED: ONDANSETRON 4 MG/2 ML VIAL ONE (16:56)
[2022-02-22] MEDS ORDERED: fentaNYL 100 MCG/2 ML VIAL ONE (16:56)
[2022-02-22] MEDS ORDERED: LIDOCAINE 2% 5 ML VIAL ONE (16:56)
[2022-02-22] MEDS ORDERED: ETOMIDATE 40 MG/20 ML VIAL IV ONE (16:56)
[2022-02-22] MEDS ORDERED: PHENYLEPHRINE 1 MG/10 ML SYRINGE IV ONE (17:13)
[2022-02-22] MEDS ORDERED: SEVOFLURANE 1 UNIT/15 MINUTE INH ONE (17:13)
[2022-02-22] MEDS ORDERED: ceFAZolin 1,000 MG VIAL ONE (17:26)
[2022-02-22] MEDS: MELATONIN 3 MG TABLET PO PRN (21:02)
[2022-02-22] MEDS: ATORVASTATIN 20 MG TABLET PO SCH (21:02)
[2022-02-23] MEDS: ALBUTEROL/IPRATROPIUM 3 ML NEB RESP TX SCH ×3 (01:07→13:30)
[2022-02-23] MEDS: ISOSORBIDE MONONITRATE 30 MG TABLET PO SCH (11:04)
[2022-02-23] MEDS: LEVOTHYROXINE 50 MCG TABLET PO SCH (11:04)
[2022-02-23] MEDS: ASPIRIN EC 81 MG TABLET PO SCH (11:04)
[2022-02-23] MEDS: PANTOPRAZOLE 40 MG TABLET PO SCH (11:04)
[2022-02-23] MEDS: POTASSIUM CHLORIDE 20 MEQ TABLET PO SCH (11:04)
[2022-02-23] MEDS: SIMETHICONE CHEW 125 MG TABLET PO SCH (11:04)
[2022-02-23] MEDS: METOPROLOL SUCCINATE XL 50 MG TABLET PO SCH (11:04)
[2022-02-23] MEDS: SPIRONOLACTONE 25 MG TABLET PO SCH (11:04)
[2022-02-23] MEDS: methylPREDNISolone SOD SUC 40 MG/1 ML VIAL IV SCH (11:05)
[2022-02-23] MEDS: ERTAPENEM 500 MG in SODIUM CHLORIDE 0.9% 100 ML IV SCH (11:05)
[2022-02-23] MEDS: POLYETHYLENE GLYCOL POWDER 17 GM PACK PO SCH (11:06)
[2022-02-23 15:41] VITALS: BP 102/59
== END 2022-02-23 18:55 | DRG 853 ==
LOC: N.ED 22:16 → N.EDINP 02-15 01:37 → SUATTDRO 02-15 01:37 → N.ICU 02-15 02:47 → N.5E 02-19 16:42
PROVIDERS: ADMIT Family Medicine; ATTEND Emergency Medicine